=== PATIENT | male | born 1980 | race Caucasian/White ===

== ENCOUNTER 2018-07-14 08:10 | Inpatient (IN) | payer OTHER ==
[2018-07-14] MEDS ORDERED: GABAPENTIN 300 MG CAP PO ONE (08:31)
[2018-07-14] MEDS ORDERED: ACETAMINOPHEN 500 MG TAB PO ONE (08:31)
[2018-07-14] MEDS ORDERED: ceFAZolin 2 GM/DEXTROSE 100 ML IV ONE (08:31)
[2018-07-14] MEDS ORDERED: DEXAMETHASONE 10 MG/ML VIAL IVP ONE (08:31)
[2018-07-14] MEDS ORDERED: LIDOCAINE 1% 2 ML INJ ONE (08:44)
[2018-07-14] MEDS ORDERED: LIDOCAINE 1% 2 ML INJ ID PRN (09:19)
[2018-07-14] MEDS ORDERED: LR 1,000 ML IV ONE (09:19)
[2018-07-14 09:36] LABS: PLATELET COUNT 230 10^3/uL (150-400)
[2018-07-14] MEDS ORDERED: HYDROGEN PEROXIDE 473 ML BOTTLE TP ONE (10:28)
[2018-07-14] MEDS ORDERED: MANNITOL 20% 100 GM/500 ML BAG IV ONE (10:28)
[2018-07-14] MEDS ORDERED: BUPIVACAINE/EPI 0.25% 30 ML SDV ONE (10:28)
[2018-07-14] MEDS ORDERED: SURGIFLO MATRIX KIT WITH THROMBIN 8 ML TP ONE (10:28)
[2018-07-14] MEDS ORDERED: GENTAMICIN SULFATE 80 MG/2 ML VIAL ONE (10:28)
[2018-07-14] MEDS ORDERED: AVITENE POWDER 1 GM JAR TP ONE (10:28)
[2018-07-14] MEDS ORDERED: CHLORHEXIDINE GLUC HIBICLENS 118 ML BTL TP ONE (10:28)
[2018-07-14] MEDS ORDERED: THROMBIN (BOVINE) 20,000 UNIT VIAL TP ONE (10:28)
[2018-07-14] MEDS ORDERED: BACITRACIN ZINC 14.2 GM OINTTUBE TP ONE (10:29)
[2018-07-14] MEDS ORDERED: POVIDONE-IODINE 30 GM OINTTUBE TP ONE (10:29)
--- NOTE | 2018-07-14 11:24 | POSTANESTH ---
Post Anesthetic Evaluation Cardiovascular Status: Normal, Stable Respiratory Status: Normal, Stable Level of Consciousness/Mental Status: Can Participate in Eval, Moderately Sleepy Pain Control: Adequate, Prn Tx Ordered Nausea/Vomiting Control: Adequate, Prn Tx Ordered Complications Possibly Related to Anesthesia: None Noted
--- NOTE | 2018-07-14 11:28 | PDANEPAE ---
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 ANE Past Medical History - Cardiovascular History Hx Hypertension: No Hx Arrhythmias: No Hx Chest Pain: No Hx Coronary Artery / Peripheral Vascular Disease: No Hx CHF / Valvular Disease: No Hx Palpitations: No - Pulmonary History Hx COPD: No Hx Asthma/Reactive Airway Disease: No Hx Recent Upper Respiratory Infection: No Hx Oxygen in Use at Home: No Hx Sleep Apnea: No Sleep Apnea Screening Result - Last Documented: Negative - Neurologic History Hx Cerebrovascular Accident: No Hx Seizures: No Hx Dementia: No Neurologic History Comment: current small interventricular tumor. recent sudden loss of hearing and some dizziness, felt to be post-viral per neurology note. Guillian Charmco Syndrome. ADD - Endocrine History Hx Diabetes: No Hypothyroid: No Hyperthyroid: No Obesity: no - Renal History Hx Renal Disorders: No - Liver History Hx Hepatic Disorders: No - Neurological & Psychiatric Hx Hx Neurological and Psychiatric Disorders: No - Cancer History Hx Cancer: No - Congenital Disorder History Hx Congenital Disorders: No - GI History Hx Gastrointestinal Disorders: No - Other Health History Other Health History: sudden hearing loss a couple weeks ago- did prednisone x 12 days has been off a week - Chronic Pain History Chronic Pain: No - Surgical History Prior Surgeries: appy 2004 ANE Review of Systems Review of Systems: - Exercise capacity METS (RN): 5 METS - Systems Constitutional: Reports: no symptoms Cardiac: Reports: no symptoms Respiratory: Reports: no symptoms ANE Patient History - Allergies Allergies/Adverse Reactions: No Known Allergies Allergy (Verified 07/07/18 16:35) - Home Medications Home Medications: Finasteride [Propecia] 1 mg PO DAILY 07/07/18 [Last Taken 07/13/18 08:00] Methylphenidate HCl [Ritalin 20mg (*)] 20 mg PO TID@06,12,16 07/07/18 [Last Taken 07/13/18 16:00] diphenhydrAMINE [Benadryl 25 MG (*)] 25 mg PO HS PRN 07/07/18 [Last Taken 22:00] - NPO status NPO Since - Liquids (Date): 07/14/18 NPO Since - Liquids (Time): 08:00 NPO Since - Solids (Date): 07/13/18 NPO Since - Solids (Time): 22:00 - Anes Hx Anes Hx: no prior problems - Smoking Hx Smoking Status: Never smoked Marijuana use: No - Alcohol Use Alcohol Use: None - Family Anes Hx Family Anes Hx: neg - N/A Family Hx Anesthesia Complications: none ANE Labs/Vital Signs - Labs Result Diagrams: 07/14/18 09:10 07/14/18 09:10 - Vital Signs Blood Pressure: 111/78 Heart Rate: 62 Respiratory Rate: 10 O2 Sat (%): 99 Height: 180.34 cm Weight: 77.111 kg ANE Physical Exam - Airway Neck exam: FROM Mallampati Score: Class 1 Mouth exam: normal dental/mouth exam - Pulmonary Pulmonary: clear to auscultation - Cardiovascular Cardiovascular: regular rate and rhythym - ASA Status ASA Status: III ANE Anesthesia Plan Anesthesia Plan: general endotracheal anesthesia Lines/Monitors: arterial line, additional IV
[2018-07-14] MEDS ORDERED: MIDAZOLAM 2 MG/2 ML VIAL IVP ONE (11:37)
[2018-07-14] MEDS ORDERED: PROPOFOL/EMULSION 500 MG/50 ML BOTTLE IV ONE ×4 (11:57→14:44)
[2018-07-14] MEDS ORDERED: LIDOCAINE 2% 5 ML SDV ONE (11:57)
[2018-07-14] MEDS ORDERED: HYDROmorphONE/DILAUDID 2 MG/ML INJ ONE (11:57)
[2018-07-14] MEDS ORDERED: LIDOCAINE 0.5% 50 ML SDV ONE (11:57)
[2018-07-14] MEDS ORDERED: ROCURONIUM 50 MG/5 ML VIAL ONE (11:57)
--- NOTE | 2018-07-14 12:25 | PDHPUP ---
History & Physical Update H&P update statement: This history and physical update is based on an assessment of the patient which was completed after admission or registration (within 24 hours), but prior to the surgery/procedure. H&P update: H&P reviewed & patient examined, no change in patient's condition since H&P completed
[2018-07-14] MEDS ORDERED: ACETAMINOPHEN 500 MG TAB PO PRN (15:47)
[2018-07-14] MEDS ORDERED: LR 500 ML IV PRN (15:47)
[2018-07-14] MEDS ORDERED: ALBUTEROL 3 ML DEYVIAL IH PRN (15:47)
[2018-07-14] MEDS ORDERED: fentaNYL 100 MCG/2 ML INJ IVP PRN (15:47)
[2018-07-14] MEDS ORDERED: DIAZEPAM 5 MG/ML 1 ML SYR IVP PRN (15:47)
[2018-07-14] MEDS ORDERED: NALOXONE HCL 0.4 MG/ML INJ IVP PRN (15:47)
[2018-07-14] MEDS ORDERED: PROMETHAZINE HCL 25 MG/ML INJ IVP PRN (15:47)
[2018-07-14] MEDS ORDERED: ONDANSETRON 4 MG/2 ML VIAL ONE (15:50)
--- NOTE | 2018-07-14 15:55 | POSTOPPROG ---
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
[2018-07-14] MEDS ORDERED: LACTULOSE 20 GM/30 ML UDCUP PO PRN (15:56)
[2018-07-14] MEDS ORDERED: OXYCODONE/APAP 5/325 TAB PO PRN (15:56)
[2018-07-14] MEDS ORDERED: diphenhydrAMINE 25 MG CAP PO PRN (15:56)
[2018-07-14] MEDS ORDERED: BISACODYL 10 MG SUPP PR PRN (15:56)
[2018-07-14] MEDS ORDERED: MAGNESIUM HYDROXIDE 30 ML UDCUP PO PRN (15:56)
[2018-07-14] MEDS ORDERED: niCARdipine/NACL 200 ML IV PRN (15:56)
[2018-07-14] MEDS ORDERED: NS W/ 20 KCl/L 1,000 ML IV SCH (16:00)
[2018-07-14] MEDS ORDERED: KETOROLAC 15 MG/1 ML SDV ONE (16:22)
[2018-07-14] MEDS: KETOROLAC 15 MG/1 ML SDV IVP SCH ×2 (16:24→23:48)
[2018-07-14] MEDS: METHOCARBAMOL 750 MG TAB PO PRN ×2 (18:14→23:48)
--- NOTE | 2018-07-14 19:57 | PDCONSULT ---
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
[2018-07-14] MEDS: SENNOSIDES/DOCUSATE SODIUM TAB PO SCH (21:23)
[2018-07-14] MEDS: DIAZEPAM 5 MG TAB PO PRN (22:04)
[2018-07-15] MEDS: ONDANSETRON 4 MG/2 ML VIAL IVP PRN ×3 (03:21→16:44)
[2018-07-15] MEDS: KETOROLAC 15 MG/1 ML SDV IVP SCH ×3 (05:48→18:07)
[2018-07-15] MEDS: METHOCARBAMOL 750 MG TAB PO PRN ×3 (06:23→16:47)
[2018-07-15] MEDS: SENNOSIDES/DOCUSATE SODIUM TAB PO SCH ×2 (08:09→20:34)
[2018-07-15] MEDS ORDERED: GADOBUTROL 10 ML VIAL IVP ONE (08:38)
--- NOTE | 2018-07-15 08:44 | PDMN ---
Medical Necessity Medical necessity: MCG: GRG neurosurgery 2 days: INPT only OP: posterior fossa craniotomy for tumor resection AUTH #[id number] FOR CPT 71718, [id number] & [id number]. DONE INPT.
--- NOTE | 2018-07-15 08:51 | GOP ---
DATE OF OPERATION: 07/14/2018 SURGEON: Yousif Ronquillo MD NEUROSURGEON: Yousif Ronquillo MD. SPRAY MACHINE OPERATOR: None. PREOPERATIVE DIAGNOSIS: 4th ventricular mass. POSTOPERATIVE DIAGNOSIS: 4th ventricular mass. PROCEDURE PERFORMED: 1. 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 2. Use of the operative microscope. 3. Stealth stereotactic neuronavigation for volumetric gross total resection of 4th ventricular tumo r. 4. Intraoperative neurophysiological monitoring, including somatosensory-evoked potentials, motor-ev oked potentials, 6th nerve and 7th nerve monitoring. FINDINGS: A successful 4th ventricular tumor resection. DESCRIPTION OF PROCEDURE: After informed consent was obtained from the patient, the patient was brou ght to the operating room and a formal time-out was performed, identifying the patient by name, medic al record number, and date of . Preoperative antibiotics were given. The endotracheal tube was placed and general endotracheal anesthesia was smoothly induced. All appropriate lines were placed by Anesthesia and all appropriate monitoring leads were placed for intraoperative somatosensory-evoke d potentials, motor-evoked potentials, and facial and abducens nerve monitoring was placed. The Mayf ield pins were placed. The patient was then turned in the prone position and all appropriate pressur e points were padded and checked. The neck was slightly extended and the head was flexed, exposing t he occipital region. A midline incision was marked. The Stealth was registered to the scalp and check for accuracy using known surface landmarks used to obtain the appropriate trajectories toward the tumor. The posterior neck was then prepped and draped in a normal sterile fashion. The skin incision was made using a 10 blade from the inion down to below C2. The skin was undermined over the fascia laterally to expose a bout 1.5 cm laterally of the fascia. A transverse incision was then made in the fascia and the occip ital muscles just beneath the inion. This allowed us to identify the avascular plane in the midline and this was then dissected down to the arch of C1. Self-retaining retractors were placed. The subo ccipital muscles were taken down from the occipital bone and once we had enough lateral exposure, the foramen magnum was visualized and the fascia here was opened using a curette. The high-speed drill was then used to drill a roughly 3.5 x 3.5 cm craniotomy flap extending from the foramen magnum onto the occipital bone. This craniotomy was removed and the dura was inspected. A few bleeding points w ere coagulated using bipolar electrocautery. At this point, we checked our boundaries using the navigation and had good expanse over the tumor. A t this point, the operative microscope was brought on the field and the remainder of the procedure wa s performed under a high-power magnification. The dura was opened in the midline and some dural tack -up sutures were placed holding the dura open. The arachnoid was opened and the cerebellar tonsils w ere visualized. The tonsils were splayed at their inferior aspect by the tumor, and this was easily visualized. We began with careful microdissection inferiorly dividing some arachnoid bands near the left PICA. We continued this dissection superiorly, splitting the arachnoid between the cerebellar t onsils until we came to the superior aspect of the tumor near the choroid plexus at the lateral adal en. The same dissection was performed on the right side. We then took a small biopsy for frozen sec tion and debulked the tumor internally. 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 Once the tumor was internally debulked, we were able to dissect further on the lateral surface. The tumor did appear to have an attachment to the brainstem at the obex on the left side, but this was qu ite small. This was easily resected and then the further arachnoid attachments of the tumor were car efully dissected. We were then able to remove the tumor largely en bloc from the obex and inferior 4 th ventricle. The floor of the 4th ventricle was inspected and remained fully intact. We then caref ully inspected the tumor bed to be sure that we had not left any tumor behind, and the bed was comple tely clean. A few small pieces of Gelfoam were placed over the area of the attachment of the tumor, and the wound was copiously irrigated using sterile saline. At this point, the dura was closed in a watertight fashion using interrupted 4-0 Nurolons. The dural opening was covered using DuraSeal. The craniotomy flap was plated back in place using Synthes nora nium plates and screws. Again, the wound was copiously irrigated using bacitracin irrigation. The s uboccipital muscles were tacked closed using interrupted 0 Vicryls. The T-incision in the fascia was then closed using interrupted 0 Vicryls in a watertight fashion. Further 0.25% Marcaine with epinep hrine was infiltrated under the skin for postoperative analgesia. The deep dermis was then closed us ing interrupted 2-0 Vicryls, and the skin was closed using Steri-Strips. Sterile dressings were plac ed. The patient was then turned back into the supine position where the Anderson pins were removed. He was extubated and was transferred to the PACU in stable condition. There were no intraoperative complications. I was scrubbed and present for the entire procedure. All sponge and needle counts we re correct at the end of the case. Blood loss was 50 cc. Fluids and urine output were per the anest hesia record. Specimen was a 4th ventricular tumor. There were no drains. All neurophysiologic mon itoring was stable throughout the case without change. BRIEF CLINICAL HISTORY: The patient is a 37-year-old man who had presented with some hearing loss. He was then incidentally found to have a 4th ventricular mass on a CT looking for tumor at the IAC. 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 /[id number]/MODL
--- NOTE | 2018-07-15 09:19 | NEUSURGPN ---
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 Plan: -Neurologically stable, patient has expected incisional pain -Post op MRI pending for today -Encourage oral pain medications -Ok to transfer to floor -PT/OT/ST to eval for possible dispo home tomorrow Discussed patient with Dr Ronquillo Please call neurosurgery with questions/concerns Subjective: incisional pain Objective: AxO x4 CN 2-12 grossly intact PERRLA 5/5 BUE, BLE Incision/dressing-some bloody drainage otherwise CDI Neuro Check Frequency: per routine Urinary Catheter in Place: No Catheter Insertion Date: 07/14/18 - Physician Discussed Patient with : Shima Neurosurgery Physical Exam - Vitals, I&O, Labs I and O 07/14/18 07/15/18 07/16/18 05:59 05:59 05:59 Intake Total 3496 Output Total 1100 Balance 2396 Weight 77.111 kg Intake: Oral (ml) 500 IV Intake (ml) 1700 IV Infused (ml) 1296 NS W/ 20 KCl/L 1,000 ml @ 1296 100 mls/hr IV CONT PAULY Rx#:[id number] Output: Urine (ml) 1025 Catheter 1025 Estimated Blood Loss (ml) 75 Other: Number of Stools Catheter 0 Vital Signs Temp Pulse Resp BP Pulse Ox 36.7 C 67 10 L 100/56 L 96 07/15/18 00:00 07/15/18 07:00 07/15/18 07:00 07/15/18 07:00 07/15/18 07:00 Laboratory Results 07/14/18 09:10 07/14/18 09:10 ICD10 Worksheet Patient Problems: Problems Problem Status Onset Brain tumor Acute - ICD10 Problem Qualifiers (1) Brain tumor
--- NOTE | 2018-07-15 11:11 | ASMTCASEMG ---
Living Arrangements What is your living Answers: With Spouse arrangement? Who do you live with? Type Of Residence What kind of residence do Answers: House you live in? 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 OT/POWER BUILDER DEVELOPER have been ordered for the patient. Patient will likely discharge independently with outpatient follow up. CM available for any D/C needs that might arise. CM will follow. Date Signed: 07/15/2018 11:11 AM Electronically Signed By:Marilin Roque LCSW
[2018-07-15] MEDS: NS 1,000 ML IV SCH ×2 (13:34→16:47)
[2018-07-15] MEDS ORDERED: PROMETHAZINE HCL 25 MG/ML INJ IVP PRN (19:31)
[2018-07-15] MEDS: DIAZEPAM 5 MG TAB PO PRN (20:34)
[2018-07-16] MEDS: KETOROLAC 15 MG/1 ML SDV IVP SCH (01:00)
[2018-07-16] MEDS: NS 1,000 ML IV SCH (01:08)
[2018-07-16] MEDS ORDERED: traMADol 50 MG TAB PO PRN (05:58)
[2018-07-16] MEDS: ONDANSETRON 4 MG/2 ML VIAL IVP PRN (08:14)
[2018-07-16] MEDS: SENNOSIDES/DOCUSATE SODIUM TAB PO SCH ×2 (08:35→22:37)
--- NOTE | 2018-07-16 08:38 | NEUSURGPN ---
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 Minimal restricted diffusion involving the inferior mesial cerebellar vermis suggesting small acute infact. No hydrocephalus. Intraventricular gas without evidence of hydrocephalus -Encourage oral pain medications as nausea/vomiting improves -PT/OT/ST -Dispo: possibly home later today if progresses well and nausea improved, if not then tomorrow -Please call neurosurgery with questions/concerns Discussed patient with Dr Ronquillo Subjective: Having headache, nausea, vomiting. Objective: Awake. Alert. PERRL. EOMI Facial expression symmetrical Tongue in midline Speech fluent Muscle strength full at 5/5 Sensation intact Catheter Insertion Date: 07/14/18 - Physician Discussed Patient with Dr.: Ronquillo Neurosurgery Physical Exam - Vitals, I&O, Labs I and O 07/15/18 07/16/18 07/17/18 05:59 05:59 05:59 Intake Total 3496 1353 Output Total 1100 Balance 2396 1353 Weight 77.111 kg Intake: Oral (ml) 500 500 IV Intake (ml) 1700 853 IV Infused (ml) 1296 NS W/ 20 KCl/L 1,000 ml @ 1296 100 mls/hr IV CONT PAULY Rx#:[id number] Output: Urine (ml) 1025 Catheter 1025 Estimated Blood Loss (ml) 75 Other: Intake Quantity Yes Sufficient Number of Voids Toilet 1 Number of Stools Catheter 0 Bladder Scan Volume (ml) Toilet 317 Post Void Residual Scan Volume (ml) Toilet 114 Number of Emesis 2 Occurrences Vital Signs Temp Pulse Resp BP Pulse Ox 37.5 C 74 16 115/65 93 07/16/18 08:00 07/16/18 08:00 07/16/18 08:00 07/16/18 08:00 07/16/18 08:00 Laboratory Results 07/14/18 09:10 07/14/18 09:10 ICD10 Worksheet Patient Problems: Problems Problem Status Onset Brain tumor Acute
[2018-07-16] MEDS: HYDROCODONE/APAP 5/325 TAB PO PRN ×3 (11:07→18:54)
[2018-07-16] MEDS: METHOCARBAMOL 750 MG TAB PO PRN ×2 (11:07→17:22)
--- NOTE | 2018-07-16 15:12 | ASMTCMCOM ---
CM Note CM Note Notes: PT/OT/MOBILE HEAVY EQUIPMENT MECHANIC rec home. Anticipate pt will d/c when medically stable. CM available for changes/needs. Date Signed: 07/16/2018 03:11 PM Electronically Signed By:KAMARI Davila
--- NOTE | 2018-07-16 16:01 | ASMTCMCOM ---
CM Note CM Note Notes: Pt and Maria Antonia decline There with Care referral, report they have an extensive support network and cannot identify a need. Date Signed: 07/16/2018 04:00 PM Electronically Signed By:KAMARI Davila
[2018-07-16] MEDS: POLYETHYLENE GLYCOL 3350 17 GM PKT PO PRN (17:22)
[2018-07-16] MEDS: DIAZEPAM 5 MG TAB PO PRN (22:37)
[2018-07-17] MEDS: HYDROCODONE/APAP 5/325 TAB PO PRN ×3 (02:23→14:03)
[2018-07-17 07:47] VITALS: BP 113/72
[2018-07-17] MEDS: SENNOSIDES/DOCUSATE SODIUM TAB PO SCH (10:37)
[2018-07-17] MEDS: METHOCARBAMOL 750 MG TAB PO PRN (10:38)
--- NOTE | 2018-07-17 10:38 | NEUSURGPN ---
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 Nausea better this am and controlled with medications. Plan: -Neurologically stable, patient has expected incisional pain -Post op MRI completed: no residual neoplasm. Minimal restricted diffusion involving the inferior mesial cerebellar vermis suggesting small acute infact. No hydrocephalus. Intraventricular gas without evidence of hydrocephalus -PT/OT/ST -Dispo: home today -Please call neurosurgery with questions/concerns Discussed patient with Dr Ronquillo Subjective: doing well. still hasn't had a bowell movement, nausea is better, no vomiting. at bedside. Objective: AAOx4 NAD VSS cnii-xii grossly intact no facial droop EOMI, PEARLA MAEx4, no pronator drift, 5/5= SILT Incision CDI, dressed. Catheter Insertion Date: 07/14/18 - Physician Discussed Patient with Dr.: Ronquillo Neurosurgery Physical Exam - Vitals, I&O, Labs I and O 07/16/18 07/17/18 07/18/18 05:59 05:59 05:59 Intake Total 1353 580 Output Total 3300 Balance 1353 -2720 Intake: Oral (ml) 500 580 IV Intake (ml) 853 Output: Urine (ml) 3300 Toilet 3300 Other: Intake Quantity Yes Yes Sufficient Number of Voids Toilet 1 1 Bladder Scan Volume (ml) Toilet 317 Post Void Residual Scan Volume (ml) Toilet 114 Number of Emesis 2 Occurrences Vital Signs Temp Pulse Resp BP Pulse Ox 37.0 C 49 L 16 113/72 94 07/17/18 07:45 07/17/18 07:45 07/17/18 07:45 07/17/18 07:45 07/17/18 07:45 Laboratory Results 07/14/18 09:10 07/14/18 09:10 ICD10 Worksheet Patient Problems: Problems Problem Status Onset Brain tumor Acute
--- NOTE | 2018-07-17 11:26 | ASDISCHSUM ---
Discharge Information Plan Status:Home with No Needs Medically Cleared to Leave: Discharge Date: CM D/C Disposition:Home, Routine, Self-Care ADT D/C Disposition:Home, Routine, Self-Care Projected Discharge Date: Transportation at D/C:Family Discharge Delay Reason: Follow-Up Date: Discharge Slot: Final Diagnosis: Placement Information Patient Contact Information Contact Name:CHRISTINA Relationship: Address: Work Phone: City: [facility] Phone: State/[place] Code: Email: Financial Information Financial Class:BCOP Primary Plan Desc:[facility] [facility] Primary Plan Number:[id number] Secondary Plan Desc: Secondary Plan Number: Assessment Information LACE LACE Length of stay for Answers: 3 days current admission Acuity / Level of Answers: Yes Care: Did the patient have an inpatient admission? # of Emergency department Answers: 0 visits in the last 6 months Score: 6 Date Signed: 07/17/2018 11:24 AM Electronically Signed By:Yulia Baron [facility] Initial CM Assessment Living Arrangements What is your living Answers: With Spouse arrangement? Who do you live with? Type Of Residence What kind of residence do Answers: House you live in? 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 OT/SALES AGENT CASUALTY INSURANCE have been ordered for the patient. Patient will likely discharge independently with outpatient follow up. CM available for any D/C needs that might arise. CM will follow. Date Signed: 07/15/2018 11:11 AM Electronically Signed By:Marilin Roque LCSW [facility] CM Progress Note CM Note CM Note Notes: PT/OT/SALES AGENT CASUALTY INSURANCE rec home. Anticipate pt will d/c when medically stable. CM available for changes/needs. Date Signed: 07/16/2018 03:11 PM Electronically Signed By:KAMARI Davila [facility] CM Progress Note CM Note CM Note Notes: Pt and Maria Antonia decline There with Care referral, report they have an extensive support network and cannot identify a need. Date Signed: 07/16/2018 04:00 PM Electronically Signed By:KAMARI Davila Intervention Information
[2018-07-17] MEDS: POLYETHYLENE GLYCOL 3350 17 GM PKT PO PRN (14:04)
== END 2018-07-17 14:15 | disposition home or self-care (01) | DRG 27 ==
LOC: F3N 08:10 → F2N 15:50 → F3N 07-15 15:45
PROVIDERS: ADMIT Neurological Surgery; ATTEND Neurological Surgery
DX: D33.1 Benign neoplasm of brain, infratentorial (principal)
CPT/HCPCS: 92523-GN; 97161-GP; 97166-GO; 97530-GO; 97535-GO; A9585; C1713; J0690; J1100; J1170; J1580; J1885; J2250; J2270; J2405; J2550; J2704

== ENCOUNTER → 2018-07-14 | Outpatient (CLI) | payer OTHER ==
[~2018-07-14] MED LIST: GADOBUTROL 10 ML VIAL IVP ONE
== END ==
LOC: FIMAGING 08:08
PROVIDERS: ATTEND Neurological Surgery
DX: D43.2 Neoplasm of uncertain behavior of brain, unspecified (principal)
CPT/HCPCS: A9585